=== PATIENT | female | born 1980 | race Two or more races ===

== ENCOUNTER 2021-08-31 03:07 | Emergency (ER) | payer BC ==
[2021-08-31 03:14] VITALS: BP 154/89; TEMP 101.1; BMI 23.6
[2021-08-31] MEDS ORDERED: ACETAMINOPHEN 325 MG TABLET (FP) PO ONE (03:23)
[2021-08-31] MEDS ORDERED: CLINDAMYCIN HCL 300 MG CAPSULE PO ONE (03:23)
[2021-08-31] MEDS ORDERED: ACETAMINOPHEN 325 MG TABLET (FP) ONE (03:24)
[2021-08-31] MEDS ORDERED: CLINDAMYCIN HCL 150 MG CAPSULE (FP) ONE (03:24)
[2021-08-31 03:33] VITALS: PULSE 112
== END 2021-08-31 03:33 | disposition home or self-care (01) ==
LOC: FER 03:07
DX: K04.7 Periapical abscess without sinus (principal)
CPT/HCPCS: 99283-25